=== PATIENT | male | born 1970 | race Caucasian/White ===

== ENCOUNTER 2017-06-16 09:30 | Emergency (ER) | payer OTHER ==
[2017-06-16 09:41] VITALS: RESP 20; TEMP 97.2
[2017-06-16 11:34] VITALS: BP 141/85; PULSE 103; O2SAT 97
== END 2017-06-16 10:05 | disposition home or self-care (01) | DRG 603 ==
LOC: ED 09:30
DX: L03.116 Cellulitis of left lower limb (principal)
CPT/HCPCS: 99282